=== PATIENT | female | born 1980 ===

== ENCOUNTER → 2024-01-17 17:39 | Outpatient (REF) | payer BC, SELFPAY ==
[2024-01-20 00:59] LABS: HPV, High Risk Not Detected; HPV, High Risk Source Anal
== END ==
LOC: CLAB 17:39
PROVIDERS: ATTENDING PHYSICIAN Surgery
DX: Z87.42 Personal history of other diseases of the female genital tract (principal)
CPT/HCPCS: 87624; 88112

== ENCOUNTER → 2024-05-23 06:21 | Day surgery (SDC) | payer BC, SELFPAY | LOC: GI 06:21 | PROVIDERS: ATTENDING PHYSICIAN Surgery; FAMILY PHYSICIAN Family Medicine | DX: Z12.11 Encounter for screening for malignant neoplasm of colon (principal); K64.8 Other hemorrhoids; K64.4 Residual hemorrhoidal skin tags; Q43.8 Other specified congenital malformations of intestine | CPT/HCPCS: G0121 ==